=== PATIENT | female | born 1990 | race Caucasian/White ===

== ENCOUNTER → 2022-12-03 | Outpatient (REF) | payer OTHER | LOC: M PLALAB 16:17 | PROVIDERS: ATTEND Nurse Practitioner Family | DX: Z12.4 Encounter for screening for malignant neoplasm of cervix (principal) | CPT/HCPCS: 87624; G0123 ==

== ENCOUNTER → 2023-07-13 | Outpatient (REF) | payer OTHER | LOC: M PLALAB 17:29 | PROVIDERS: ATTEND Advanced Practice Midwife | DX: O20.9 Hemorrhage in early pregnancy, unspecified (principal) ==

== ENCOUNTER 2023-07-15 13:01 | Emergency (ER) | payer OTHER ==
[~2023-07-15] VITALS: Ht 162.6 cm; Wt 60.5 kg
[2023-07-15 14:49] LABS: HEMATOCRIT 38.5 % (36.0-47.0); HEMOGLOBIN 12.9 g/dl (12.0-15.5); MEAN CORPUSCULAR HEMOGLOBIN 30.1 pg (27.0-33.0); MEAN CORPUSCULAR HGB CONC 33.5 g/dl (32.0-36.5); PLATELET COUNT, AUTOMATED 243 10^3/uL (150-450); RED BLOOD COUNT 4.28 10^6/uL (4.00-5.40); WHITE BLOOD COUNT 7.2 10^3/uL (4.0-10.0)
[2023-07-15] MEDS ORDERED: RHOGAM 300MCG (1500IU) INJ IM ONE (15:10)
[2023-07-15 17:00] VITALS: BP 123/71; TEMP 98.7; O2SAT 98
== END 2023-07-15 17:13 | disposition home or self-care (01) ==
LOC: M ED 13:01
DX: O20.0 Threatened abortion (principal); Z91.048 Other nonmedicinal substance allergy status; Z3A.01 Less than 8 weeks gestation of pregnancy
CPT/HCPCS: 76801; 76817; 84702; 85027; 86850; 86900; 86901; 93976; 96372; 99284; J2790

== ENCOUNTER → 2023-07-28 | Outpatient (CLI) | payer OTHER | LOC: M PLALAB 10:35 | PROVIDERS: ATTEND Advanced Practice Midwife | DX: O03.9 Complete or unspecified spontaneous abortion without complication (principal) ==

== ENCOUNTER → 2023-08-17 | Outpatient (REF) | payer OTHER | LOC: M SFHCWAGY 17:38 | PROVIDERS: ATTEND Advanced Practice Midwife | DX: O03.9 Complete or unspecified spontaneous abortion without complication (principal) ==

== ENCOUNTER → 2023-08-31 | Outpatient (CLI) | payer OTHER | LOC: M PLALAB 16:00 | PROVIDERS: ATTEND Advanced Practice Midwife | DX: O03.9 Complete or unspecified spontaneous abortion without complication (principal) ==

== ENCOUNTER → 2023-12-13 | Outpatient (REF) | payer OTHER | LOC: M PLALAB 15:42 | PROVIDERS: ATTEND Advanced Practice Midwife | DX: Z34.81 Encounter for supervision of other normal pregnancy, first trimester (principal) ==

== ENCOUNTER 2023-12-25 08:51 | Emergency (ER) | payer OTHER ==
[~2023-12-25] VITALS: Ht 162.6 cm; Wt 58.6 kg
[2023-12-25] MEDS ORDERED: MULTTAB20 PO (09:18)
[2023-12-25] MEDS: NS 1,000 ML IV ONE (10:58)
[2023-12-25] MEDS: ONDANSETRON 4MG 2ML VIAL IV ONE (10:58)
[2023-12-25 11:16] LABS: BASO % 0.4 % (0.0-1.0); EOS # 0.1 10^3/uL (0.0-0.5); EOS % 1.1 % (0.0-3.0); HEMATOCRIT 37.1 % (36.0-47.0); HEMOGLOBIN 12.7 g/dl (12.0-15.5); LYMPH # 1.2 10^3/uL (1.5-5.0); LYMPH % 15.4 % (24.0-44.0); MEAN CORPUSCULAR HGB CONC 34.2 g/dl (32.0-36.5); MEAN CORPUSCULAR VOLUME 87.7 fl (80.0-96.0); MONO # 0.5 10^3/uL (0.0-0.8); NEUTROPHILS % 76.8 % (36.0-66.0); PLATELET COUNT, AUTOMATED 202 10^3/uL (150-450); RED BLOOD COUNT 4.23 10^6/uL (4.00-5.40); WHITE BLOOD COUNT 7.9 10^3/uL (4.0-10.0)
[2023-12-25 11:43] LABS: BLOOD UREA NITROGEN 7 MG/DL (9-23); CALCIUM LEVEL 8.8 MG/DL (8.5-10.1); CARBON DIOXIDE LEVEL 18 MMOL/L (20-31); CHLORIDE LEVEL 105 MMOL/L (98-107); CREATININE FOR GFR 0.51 MG/DL (0.55-1.30); GLOMERULAR FILTRATION RATE > 60.0 (>60); GLUCOSE, FASTING 61 MG/DL (60-100); POTASSIUM SERUM 3.6 MMOL/L (3.5-5.1); SODIUM LEVEL 137 MMOL/L (136-145)
[2023-12-25 12:41] VITALS: BP 117/61; TEMP 98.9; O2SAT 100
[2023-12-25] MEDS ORDERED: ONDA4TAB6 PO (12:41)
== END 2023-12-25 13:00 | disposition home or self-care (01) ==
LOC: M ED 10:08
DX: O21.9 Vomiting of pregnancy, unspecified (principal); Z3A.12 12 weeks gestation of pregnancy; Z91.048 Other nonmedicinal substance allergy status; Z79.83 Long term (current) use of bisphosphonates; Z79.810 Long term (current) use of selective estrogen receptor modulators (SERMs)
CPT/HCPCS: 80048; 81001; 85025; 87086; 96361; 96374; 99284; J2405

== ENCOUNTER → 2023-12-29 | Outpatient (CLI) | payer OTHER ==
[~2023-12-29] MED LIST: MULTTAB20 PO; ONDA4TAB6 PO
[2023-12-29 17:15] LABS: HEMATOCRIT 33.2 % (36.0-47.0); HEMOGLOBIN 11.1 g/dl (12.0-15.5); MEAN CORPUSCULAR HEMOGLOBIN 29.5 pg (27.0-33.0); MEAN CORPUSCULAR HGB CONC 33.4 g/dl (32.0-36.5); MEAN CORPUSCULAR VOLUME 88.3 fl (80.0-96.0); PLATELET COUNT, AUTOMATED 169 10^3/uL (150-450); RED BLOOD COUNT 3.76 10^6/uL (4.00-5.40); WHITE BLOOD COUNT 6.6 10^3/uL (4.0-10.0)
[2023-12-29 18:07] LABS: HIV 1&2 SCREEN NEGATIVE (NEGATIVE)
[2023-12-29 18:13] LABS: HEPATITIS C VIRUS ABY INDEX < 0.02 INDEX (<0.8)
[2023-12-29 19:18] LABS: GC DNA AMPLIFICATION NEGATIVE (NEGATIVE)
== END ==
LOC: M PLALAB 16:04
PROVIDERS: ATTEND Advanced Practice Midwife
DX: Z34.81 Encounter for supervision of other normal pregnancy, first trimester (principal)

== ENCOUNTER → 2024-01-16 | Outpatient (CLI) | payer OTHER | LOC: M PLALAB 16:04 | PROVIDERS: ATTEND Obstetrics & Gynecology | DX: Z36.89 Encounter for other specified antenatal screening (principal) ==

== ENCOUNTER → 2024-02-20 | Outpatient (CLI) | payer OTHER ==
[~2024-02-20] MED LIST changes: +ONDA-282 PO; -ONDA4TAB6 PO
== END ==
LOC: M WHC 13:10
PROVIDERS: ATTEND Obstetrics & Gynecology
DX: O32.1XX0 Maternal care for breech presentation, not applicable or unspecified (principal); Z3A.20 20 weeks gestation of pregnancy; O41.8X20 Other specified disorders of amniotic fluid and membranes, second trimester, not applicable or unspecified

== ENCOUNTER → 2024-03-28 | Outpatient (CLI) | payer OTHER ==
[2024-03-28 13:04] LABS: HEMATOCRIT 33.3 % (36.0-47.0); HEMOGLOBIN 10.6 g/dl (12.0-15.5); MEAN CORPUSCULAR HEMOGLOBIN 30.5 pg (27.0-33.0); MEAN CORPUSCULAR HGB CONC 31.8 g/dl (32.0-36.5); MEAN CORPUSCULAR VOLUME 95.7 fl (80.0-96.0); PLATELET COUNT, AUTOMATED 187 10^3/uL (150-450); RED BLOOD COUNT 3.48 10^6/uL (4.00-5.40)
[2024-03-28 13:25] LABS: GLUCOSE CHALLENGE TEST 1 HOUR 98 MG/DL (LESS THAN 140)
[2024-03-28 13:56] LABS: HIV 1&2 SCREEN NEGATIVE (NEGATIVE)
[2024-03-28 14:03] LABS: HEPATITIS C VIRUS ABY INDEX < 0.02 INDEX (<0.8)
[2024-03-28 14:24] LABS: GC DNA AMPLIFICATION NEGATIVE (NEGATIVE)
== END ==
LOC: M PLALAB 10:15
PROVIDERS: ATTEND Obstetrics & Gynecology
DX: Z34.80 Encounter for supervision of other normal pregnancy, unspecified trimester (principal)

== ENCOUNTER → 2024-04-02 | Outpatient (CLI) | payer OTHER | LOC: M WHC 11:43 | PROVIDERS: ATTEND Obstetrics & Gynecology | DX: O32.1XX0 Maternal care for breech presentation, not applicable or unspecified (principal); Z3A.26 26 weeks gestation of pregnancy ==

== ENCOUNTER → 2024-05-24 | Outpatient (CLI) | payer OTHER | LOC: M WHC 10:47 | PROVIDERS: ATTEND Nurse Practitioner Women's Health | DX: O09.523 Supervision of elderly multigravida, third trimester (principal); Z3A.33 33 weeks gestation of pregnancy; O32.1XX0 Maternal care for breech presentation, not applicable or unspecified ==

== ENCOUNTER → 2024-06-04 | Outpatient (REF) | payer OTHER | LOC: M SFHCWAGY 12:22 | PROVIDERS: ATTEND Obstetrics & Gynecology | DX: Z36.85 Encounter for antenatal screening for Streptococcus B (principal); Z3A.35 35 weeks gestation of pregnancy ==

== ENCOUNTER 2024-06-17 05:00 | Inpatient (IN) | payer OTHER ==
[2024-06-17] VITALS (9 sets, daily range): BP systolic 108–128; BP diastolic 55–76; TEMP 98.2; O2SAT 96–99
[~2024-06-17] VITALS: Ht 162.6 cm; Wt 72.8 kg
[2024-06-17] MEDS ORDERED: HOME MED LIST COMPLETE! XX SCH (05:35)
[2024-06-17 06:05] LABS: HEMATOCRIT 33.6 % (36.0-47.0); HEMOGLOBIN 11.3 g/dl (12.0-15.5); MEAN CORPUSCULAR HEMOGLOBIN 30.2 pg (27.0-33.0); MEAN CORPUSCULAR HGB CONC 33.6 g/dl (32.0-36.5); MEAN CORPUSCULAR VOLUME 89.8 fl (80.0-96.0); PLATELET COUNT, AUTOMATED 184 10^3/uL (150-450); RED BLOOD COUNT 3.74 10^6/uL (4.00-5.40); WHITE BLOOD COUNT 10.1 10^3/uL (4.0-10.0)
[2024-06-17 07:08] LABS: HEPATITIS C VIRUS ABY INDEX < 0.02 INDEX (<0.8)
[2024-06-17] MEDS ORDERED: LIDOCAINE 1% MDV 20ML VIAL INFIL PRN (08:10)
[2024-06-17] MEDS ORDERED: TRANEXAMIC ACID INJection 1,000 MG in NS 100 ML IV PRN (08:10)
[2024-06-17] MEDS ORDERED: METHYLERGONOVINE MALEATE 0.2MG/ML 1ML VIAL IM PRN (08:10)
[2024-06-17] MEDS ORDERED: OXYTOCIN DRIP 30 UNITS in IV 1 EA IV PRN (08:10)
[2024-06-17] MEDS ORDERED: CARBOPROST TROMETHAMINE 250 MCG/ML AMP IM PRN (08:10)
[2024-06-17] MEDS ORDERED: ceFAZolin 2 GM/D5W 50 ML IV BAG As Ordered ONE (08:11)
[2024-06-17] MEDS: AZITHROMYCIN INJ 500 MG, VIAL MATE ADAPTER 1 EACH in NS 250 ML IV ONE (08:25)
[2024-06-17] MEDS: LACTATED RINGER'S 1000 ML IV STA (08:25)
[2024-06-17] MEDS: BICITRA 30ML SOLN UDC PO ONE (08:26)
[2024-06-17] MEDS: LR 1,000 ML IV SCH ×2 (08:26→10:10)
[2024-06-17] MEDS: ceFAZolin SOD 2 GM in IV 1 EA IV ONE (08:26)
[2024-06-17] MEDS: ONDANSETRON 4MG 2ML VIAL IV ONE (08:44)
[2024-06-17] MEDS ORDERED: fentaNYL 100 MCG/2 ML INJECTION As Ordered ONE (09:13)
[2024-06-17] MEDS ORDERED: MORPHINE PRES-FREE INJ 10 MG/10 ML VIAL As Ordered ONE (09:13)
[2024-06-17] MEDS ORDERED: OXYTOCIN 30UNITS IN 0.9% NaCl 500ML IV BAG As Ordered ONE (09:13)
[2024-06-17] MEDS ORDERED: PHENYLephrine 500MCG 5ML (100MCG/ML) SYRINGE As Ordered ONE (09:13)
[2024-06-17] MEDS ORDERED: KETOROLAC 60MG 2ML VIAL As Ordered ONE (09:45)
[2024-06-17] MEDS ORDERED: CALCIUM CARBONATE 500 MG CHEW U/D PO PRN (10:10)
[2024-06-17] MEDS ORDERED: MORPHINE 4 MG/ML 1ML VIAL IV PRN (10:10)
[2024-06-17] MEDS ORDERED: RHO(D) IMMUNE GLOBULIN/MALTOSE 500MCG(2500IU)/2.2ML VIAL (WINRHO) IM SCH (10:10)
[2024-06-17] MEDS ORDERED: PERCOCET 5MG/325MG TAB PO PRN ×2 (10:10→10:25)
[2024-06-17] MEDS ORDERED: ONDANSETRON 4MG 2ML VIAL IV PRN ×2 (10:10→10:25)
[2024-06-17] MEDS ORDERED: ANUSOL HC CREAM 30GM TOP PRN (10:10)
[2024-06-17] MEDS ORDERED: IBUP80TA PO (10:12)
[2024-06-17] MEDS ORDERED: COLA100C5 PO (10:12)
[2024-06-17] MEDS ORDERED: PERCOCET PO (10:12)
[2024-06-17] MEDS: OXYTOCIN DRIP 30 UNITS in IV 1 EA IV SCH (10:19)
[2024-06-17] MEDS ORDERED: **NOTE PATIENT COMMENT** MISC XX SCH (10:25)
[2024-06-17] MEDS ORDERED: fentaNYL 100 MCG/2 ML INJECTION IV PRN (10:25)
[2024-06-17] MEDS: SLF 3 ML SYR IV SCH (10:25)
[2024-06-17] MEDS ORDERED: MEPERIDINE 25 MG/ML 1ML VIAL IV PRN (10:25)
[2024-06-17] MEDS ORDERED: METOCLOPRAMIDE INJ 10MG/2ML VIAL IV PRN (10:25)
[2024-06-17] MEDS ORDERED: NALOXONE INJ 0.4MG/1ML VIAL IV PRN ×2 (10:25)
[2024-06-17] MEDS ORDERED: diphenhydrAMINE 50MG/ML VIAL As Ordered ONE (11:25)
[2024-06-17] MEDS: diphenhydrAMINE 50MG/ML VIAL IV PRN (11:28)
[2024-06-17] MEDS: KETOROLAC 30 MG/ML 1ML VIAL IV SCH (16:02)
[2024-06-17] MEDS: SIMETHICONE 80MG CHEW TAB PO PRN (16:02)
[2024-06-17] MEDS: DOCUSATE SODIUM 100MG CAPSULE PO SCH (20:57)
[2024-06-18 02:13] VITALS: BP 125/60; O2SAT 98
[2024-06-18 06:18] VITALS: BP 109/53; O2SAT 96
[2024-06-18] MEDS: FERROUS SULFATE 325MG TAB PO SCH (07:49)
[2024-06-18] MEDS: PRENATAL VITAMINS CHEWABLE TABLET PO SCH (07:49)
[2024-06-18 08:01] LABS: HEMATOCRIT 28.9 % (36.0-47.0); HEMOGLOBIN 9.7 g/dl (12.0-15.5); MEAN CORPUSCULAR HEMOGLOBIN 30.3 pg (27.0-33.0); MEAN CORPUSCULAR HGB CONC 33.6 g/dl (32.0-36.5); MEAN CORPUSCULAR VOLUME 90.3 fl (80.0-96.0); PLATELET COUNT, AUTOMATED 156 10^3/uL (150-450); WHITE BLOOD COUNT 8.9 10^3/uL (4.0-10.0)
[2024-06-18 10:00] VITALS: BP 125/68; O2SAT 97
[2024-06-18] MEDS: IBUPROFEN 800 MG TAB PO SCH (12:12)
[2024-06-18 13:56] VITALS: BP 113/55; O2SAT 98
[2024-06-18] MEDS: ACETAMINOPHEN 500 MG TAB PO PRN (15:49)
[2024-06-18 18:37] VITALS: BP 117/59; O2SAT 99
[2024-06-18 21:58] VITALS: BP 125/67; O2SAT 98
[2024-06-19 06:00] VITALS: BP 121/62; O2SAT 97
[2024-06-19] MEDS: MEASLES,MUMPS,RUBELLA VACCINE INJ (MMR-II) SC.IMMUN ONE (08:26)
[2024-06-19 10:15] VITALS: BP 116/78; O2SAT 97
[2024-06-19] MEDS: PERCOCET 5MG/325MG TAB PO PRN (13:24)
[2024-06-19] MEDS: CYCLOBENZAPRINE 10MG TABLET PO ONE (14:06)
== END 2024-06-19 19:30 | disposition home or self-care (01) | DRG 786 ==
LOC: M LDO 05:00 → M LDI 05:33 → M OBS 11:47
PROVIDERS: ADMIT Obstetrics & Gynecology; ATTEND Obstetrics & Gynecology
PROC: 10D00Z1 Extraction of Products of Conception, Low, Open Approach (ICD-10-PCS; principal; 2024-06-17 08:30)
DX: O32.2XX0 Maternal care for transverse and oblique lie, not applicable or unspecified (principal); O60.14X0 Preterm labor third trimester with preterm delivery third trimester, not applicable or unspecified; Z37.0 Single live birth; Z3A.36 36 weeks gestation of pregnancy